=== PATIENT | male | born 1975 | race Caucasian/White ===

== ENCOUNTER 2021-08-11 08:10 | Emergency (ER) | payer OTHER, SELFPAY ==
--- NOTE | ~2021-08-11 | XR_ITS ---
EXAMINATION: XR foot RT min 3V DATE: 08/11/2021 08:39 INDICATION: Right foot pain TECHNIQUE: Dorsoplantar, lateral, and 2 oblique views of the right foot were obtained. COMPARISON: 12/23/2014 FINDINGS: There is no fracture, dislocation, or subluxation. Mild osteoarthritis is again noted at th e talonavicular joint. The soft tissues are unremarkable. IMPRESSION: 1. No acute osseous abnormality. Reviewed, dictated and finalized at location A. [facility]
--- NOTE | 2021-08-11 08:16 | ED.LOWEXIN ---
HPI - Extremity Injury (Lower) General Chief Complaint: Extremity Injury, Lower Stated Complaint: Right Foot Pain Time Seen by Provider: 08/11/21 08:16 Source: patient, family and RN notes reviewed Mode of arrival: ambulatory Limitations: no limitations History of Present Illness HPI Narrative: 46-year-old male presents to the [facility] with right medial foot pain. Patient reports that he rolled it approximately 8:45 last night. Reports that his knee gave out when he rolled his ankle. Denies falling, no back pain or head pain. Denies LOC. Has taken 4 ibuprofen. Is currently wearing his significant other's orthopedic boot. Reports not being able to bear weight. History of right shoulder pain and draining of the right knee. Related Data Home Medications Medication Instructions Recorded Confirmed clonazepam 1 mg PO PRN PRN 08/11/21 08/11/21 Allergies Allergy/AdvReac Type Severity Reaction Status Date / Time No Known Allergies Allergy Verified 08/11/21 08:21 Review of Systems Review of Systems: All systems reviewed & are unremarkable except as noted in HPI and below Constitutional: Constitutional: Reports no additional constitutional complaints, Denies chills and Denies fever(s) Eyes: Eyes: Reports no additional eye complaints ENT: Reports system reviewed and no additional complaints, except as documented Cardiovascular: Cardiovascular: Reports no additional cardiovascular complaints and Denies chest pain Respiratory: Respiratory: Reports no additional respiratory complaints and Denies cough Gastrointestinal: Gastrointestinal: Reports no additional gastrointestinal complaints and Denies abdominal pain Musculoskeletal: Musculoskeletal: Reports as per HPI, Denies arthralgias and Denies joint swelling Comments: Right medial foot pain Integumentary/Breasts: Skin/Breast: Reports system reviewed and no additional complaints, except as docu and Denies rash Neurologic: Reports system reviewed and no additional complaints, except as documented, Denies vertigo, Denies dizziness, Denies syncope, Denies headache(s), Denies focal weakness, Denies numbness and Denies weakness Psychiatric: Psychiatric: Reports no additional psychiatric complaints Allergic/Immunologic: Allergic/Immunologic: Reports no additional allergic/immunologic complaints PMFSH Past Medical History Medical History (Updated 08/11/21 @ 09:01 by Daina Hagan) Anxiety Knee effusion, right With draining by Ortho Patient denies significant medical history Surgical History Surgical History (Updated 08/11/21 @ 08:54 by Daina Hagan) History of arthroplasty of right shoulder Social History Social History (Updated 08/11/21 @ 08:55 by Daina Hagan) Living arrangements: with family Gender identity (if verbalized by the patient): Male Comments At the time of my signature, I reviewed and agree with the nursing past medical, surgical, social, and family history. There is no relevant family history pertinent to the patient complaint. Exam Const: General: healthy appearing, no acute distress and alert Nutritional Appearance: well nourished Orientation/consciousness: patient oriented x3 Limitations: no limitations HENMT: Head: normal to inspection Eyes: Pupils: Equal, round and reactive pupils present Neck: Neck: normal visual inspection, no lymphadenopathy and no meningeal signs Chest: Chest palpation & inspection: normal inspection of the chest Resp: Effort & Inspection: normal respiratory effort Cardio: Rate: regular rate Back/Spine/Pelvis: Back: no CVA tenderness Skin: General skin exam: normal color Rashes: no rashes Wounds: no wounds Neuro: General: patient oriented x3, moves all extremities, no meningeal signs and no focal motor deficits Speech: normal speech Other: Reports unable to walk due to pain in right foot Extrem: General: normal to inspection Ankle/foot/toe images: 1. Reports pain and tenderness
[2021-08-11 08:27] VITALS: BP 156/92; PULSE 81; RESP 16; TEMP 36.2; O2SAT 99
== END 2021-08-11 08:53 | disposition home or self-care (01) ==
PROVIDERS: Emergency Provider Nurse Practitioner; PCP Internal Medicine
DX: S96.911A Strain of unspecified muscle and tendon at ankle and foot level, right foot, initial encounter (principal); X50.9XXA Other and unspecified overexertion or strenuous movements or postures, initial encounter; F41.9 Anxiety disorder, unspecified
CPT/HCPCS: 73630; 99213; G0463

== ENCOUNTER 2024-03-27 12:47 | Emergency (ER) | payer OTHER, SELFPAY ==
[2024-03-27] VITALS (8 sets, daily range): BP systolic 139–153; BP diastolic 90–102; PULSE 73–92; RESP 14–22; TEMP 36.6; O2SAT 96–99
--- NOTE | ~2024-03-27 | XR_ITS ---
EXAMINATION: XR chest 2V DATE: 03/27/2024 13:15 INDICATION: Persistent tachycardia post running TECHNIQUE: PA and lateral views of the chest were obtained. COMPARISON: Chest radiograph dated 10/17/2014 FINDINGS: Minimal linear discoid atelectasis at the lingula. No other airspace opacities, pulmonary edema, pleu ral effusion or pneumothorax. The cardiomediastinal silhouette is normal. Mild thoracic spondylosis. IMPRESSION: 1. Minimal lingular discoid atelectasis. Reviewed, dictated and finalized at location A.
--- NOTE | 2024-03-27 13:05 | ECG_ITS ---
Test Date: 2024-03-27 13:01:45 Measurements Intervals [place] Rate: 92 P: 50 [place]: 132 QRS: -3 QRSD: 106 T: 3 QT: 353 QTc: 438 Interpretive Statements SINUS RHYTHM MINIMAL VOLTAGE CRITERIA FOR LVH, CONSIDER NORMAL VARIANT [MEETS CRITERIA IN ONE OF: R(aVL), S(V1), R(V5), R(V5/V6)+S(V1)] No previous ECG available for comparison Electronically Signed On 03-27-2024 16:19:00 CDT by Sadiq Summers M.D.
[2024-03-27] MEDS: ASPIRIN 81 MG CHEWABLE TABLET 243 MG PO (13:16)
[2024-03-27 13:33] LABS: Basophils Percent Auto 0.7 % (0.2-1.2); Eosinophils Percent Auto 0.2 % (0-4.4); Hematocrit 41.4 % (42.0-52.0); Hemoglobin 13.8 g/dL (14.0-18.0); Immature Granulocyte Absolute 0.01 K/mm3 (0.00-0.031); Immature Granulocyte Percent A 0.2 % (0-0.5); Lymphocytes Absolute Auto 1.47 K/mm3 (0.9-3.2); Lymphocytes Percent Auto 24.1 % (18.3-44.2); Mean Corpuscular HGB Conc 33.3 g/dl (32-36); Mean Corpuscular Hemoglobin 31.4 pg (26-34); Mean Corpuscular Volume 94.3 fl (80-100); Mean Platelet Volume 12.1 fl (7.4-10.4); Monocytes Absolute Auto 0.3 K/mm3 (0.1-0.6); Monocytes Percent Auto 5.6 % (2.6-8.5); Neutrophils Absolute Auto 4.2 K/mm3 (1.3-6.7); Neutrophils Percent Auto 69.2 % (45.5-73.1); Platelet Count Result 163 k/mm3 (150-375); Red Blood Count 4.39 M/mm3 (4.6-6.20); Red Cell Distribution Width 13.3 % (11.5-14.5); White Blood Count 6.1 K/mm3 (4.5-10.0)
[2024-03-27 13:43] LABS: Prothrombin Time 13.7 Seconds (11.1-14.7)
[2024-03-27 13:44] LABS: Alanine Aminotransferase 14 U/L (6-50); Albumin Level 4.3 g/dL (3.5-5.1); Alkaline Phosphatase 74 U/L (38-126); Anion Gap 6 mmol/L (4-12); Aspartate Amino Transferase 20 U/L (17-59); Bilirubin,Total 0.4 mg/dL (0.2-1.3); Blood Urea Nitrogen 13 mg/dL (9-20); Calcium 9.2 mg/dL (8.4-10.2); Carbon Dioxide 29 mmol/L (22-30); Chloride 110 mmol/L (98-107); Estimated CRCL calculation 98 ml/min; Estimated Glomerular Filt Rate > 60; Glucose 90 mg/dL (65-110); Lipase 83 U/L (23-300); Partial Thromboplastin Time 25.3 Seconds (22.3-36.8); Potassium 3.5 mmol/L (3.4-5.0); Sodium 145 mmol/L (137-145)
[2024-03-27 13:55] LABS: Troponin I < 0.012 ng/mL (0.000-0.034)
--- NOTE | 2024-03-27 14:30 | ED.ARRPALP ---
HPI - Arrhythmia/Palpitations General Chief Complaint: Arrhythmia/Palpitations Stated Complaint: heart is pumping Time Seen by Provider: 03/27/24 13:12 History of Present Illness HPI narrative: Patient is a 48-year-old male who presents to the emergency department this afternoon complaining of racing heartbeat shortly after he finished running a few miles. Patient states that within the last month he has lost 30 lb by dieting and exercise. Patient states that he has been running every single day and he noticed that once he lost all this weight he has been having episodes where he would feel like his heart is racing. He denies any sharp stabbing chest pain, denies any shortness of breath, and is currently denying any additional symptoms including any fevers or chills. Related Data Home Medications Medication Instructions Recorded Confirmed No Home Medications 03/27/24 Allergies Allergy/AdvReac Type Severity Reaction Status Date / Time No Known Allergies Allergy Verified 03/27/24 13:22 Review of Systems Review of Systems: All systems are reviewed and are negative unless stated otherwise in the HPI. [facility] Past Medical History Medical History Anxiety Knee effusion, right With draining by Ortho Patient denies significant medical history Surgical History Surgical History History of arthroplasty of right shoulder Social History Social History Living arrangements: with family Gender identity (if verbalized by the patient): Male Exam Narrative: General: Alert, awake, afebrile, in no acute distress. HEENT: PERRL, no rhinorrhea, no post nasal drip, oropharynx clear. Cardiovascular: Regular rate and rhythm, no murmurs, rubs or gallops, no peripheral edema. Respiratory: Clear to auscultation bilaterally, no tachypnea, no wheezing, no rhonchi, no rubs, no respiratory distress. Abdomen: Soft, nontender, nondistended, no rebound, no guarding, no peritoneal signs. Musculoskeletal: No joint swelling or deformity, normal muscle tone. Skin: No rashes or petechia, no signs of infection. Neurological: Alert and oriented to person, place, and time. Follows all commands. No focal deficits, speech is clear and fluent. Course Vital Signs Vital signs: Vital Signs Temperature 97.8 F 03/27/24 13:04 Pulse Rate 88 03/27/24 13:04 Respiratory Rate 18 03/27/24 13:04 Pulse Oximetry 96 03/27/24 13:04 Temperature 97.8 F 03/27/24 13:04 Pulse Rate 76 03/27/24 15:32 Respiratory Rate 20 03/27/24 15:32 Blood Pressure 144/92 H 03/27/24 15:32 Pulse Oximetry 99 03/27/24 15:32 Oxygen Delivery Room Air 03/27/24 13:17 MDM - Arrhythmia/Palpitations MDM Narrative Medical decision making narrative: The patient was evaluated by myself in the emergency department. History is obtained from patient who is an independent historian and physical exam was performed. External medical records were reviewed at this time. IV was established and pertinent tests were ordered. EKG was obtained which revealed sinus rhythm at a rate of 92 beats per minute. No ST changes, T wave inversions or evidence of acute ischemia. EKG was independently interpreted by me and is currently pending official cardiology read. Laboratory results obtained revealing no acute process. Two sets of troponins were obtained and noted to be negative. Imaging studies obtained included CXR which was independently interpreted by me revealing no acute process, which is pending final radiology interpretation. Differential diagnosis considerations include palpitations, electrolyte derangements, dehydration and acute viral syndrome. Comorbidities impacting this visit include none. I have evaluated and discussed social determinants of health with the patient that
--- NOTE | 2024-03-27 15:50 | ECG_ITS ---
Test Date: 2024-03-27 15:53:22 Measurements Intervals [place] Rate: 60 P: 33 [place]: 153 QRS: -10 QRSD: 102 T: -8 QT: 395 QTc: 396 Interpretive Statements SINUS RHYTHM VOLTAGE CRITERIA FOR LVH [MEETS CRITERIA IN ONE OF: R(aVL), S(V1), R(V5), R(V5/V6)+S(V1)] Compared to ECG 03/27/2024 13:01:45 No significant changes Electronically Signed On 03-27-2024 16:19:32 CDT by Sadiq Summers M.D.
[2024-03-27 16:19] LABS: Troponin I < 0.012 ng/mL (0.000-0.034)
== END 2024-03-27 16:54 | disposition home or self-care (01) ==
PROVIDERS: Emergency Provider Emergency Medicine; PCP Internal Medicine
DX: R00.2 Palpitations (principal); Z96.611 Presence of right artificial shoulder joint
CPT/HCPCS: 36415; 71046; 80053; 83690; 84484; 85025; 85610; 85730; 93005; 99284; A9270